=== PATIENT | male | born 1945 | race Caucasian/White ===

== ENCOUNTER 2024-05-28 11:01 | Observation (INO) ==
[2024-05-28 11:22] VITALS: BMI 28.8
--- NOTE | 2024-05-28 11:34 | EKG ---
Test Reason : preop Blood Pressure : */* mmHG Vent. Rate : 80 BPM Atrial Rate : 80 BPM P-R Int : 224 ms QRS Dur : 106 ms QT Int : 370 ms P-R-T Axes : 57 -6 29 degrees QTc Int : 426 ms Sinus rhythm with 1st degree AV block Otherwise normal ECG No previous ECGs available Confirmed by Malik Christensen MD ([id number]) on 05/28/2024 2:23:41 PM Referred By: Confirmed By: Malik Christensen MD
[2024-05-28 11:43] LABS: ALANINE AMINOTRANSFERASE 19 Units/L (12-78); ALBUMIN 3.8 g/dL (3.4-5.0); ALKALINE PHOSPHATASE 93 Units/L (46-116); ASPARTATE AMINO TRANSFERASE 15 Units/L (15-37); BLOOD UREA NITROGEN 18 mg/dL (7-18); CARBON DIOXIDE 28.4 mmol/L (21-32); CHLORIDE 104 mmol/L (98-107); COR NA(FOR HYPERGLY) 142 mmol/L (136-145); CREATINE KINASE 166 Units/L (39-308); CREATININE 1.31 mg/dL (0.70-1.30); GLUCOSE 175 mg/dL (65-99); MAGNESIUM 1.7 mg/dL (2.0-2.9); POTASSIUM 3.9 mmol/L (3.5-5.1); SODIUM 140 mmol/L (136-145); TOTAL PROTEIN 7.2 g/dL (6.4-8.2); eGFR NON BLACK RACES 56 (>60)
[2024-05-28 11:51] LABS: BASOPHILS # (AUTO) 0.1 X10^3/uL (0.0-0.1); EOSINOPHILS # (AUTO) 0.1 x10^3/uL (0.0-0.2); EOSINOPHILS % (AUTO) 1.9 % (0.9-2.9); HEMATOCRIT 39.5 % (42.0-54.0); HEMOGLOBIN 13.8 g/dL (13.5-18.0); LYMPHOCYTES # (AUTO) 1.6 X10^3/uL (1.3-2.9); LYMPHOCYTES % (AUTO) 22.6 % (21.0-51.0); MEAN CORPUSCULAR HEMOGLOBIN 30.3 pg (27.0-34.0); MEAN CORPUSCULAR VOLUME 86.7 fL (80.0-100.0); MEAN PLATELET VOLUME 9.7 fL (7.4-11.0); MONOCYTES # (AUTO) 0.4 x10^3/uL (0.3-0.8); MONOCYTES % (AUTO) 6.1 % (0.0-13.0); NEUTROPHILS # (AUTO) 4.6 x10^3/uL (2.2-4.8); NEUTROPHILS % (AUTO) 67.4 % (42.0-75.0); PLATELET COUNT 255 X10^3/uL (150.0-450.0); RED BLOOD COUNT 4.56 X10^6/uL (4.7-6.0); RED CELL DISTRIBUTION WIDTH 13.3 % (11.6-16.5); WHITE BLOOD COUNT 6.9 X10^3/uL (3.6-10.0)
[2024-05-28 11:56] LABS: INR 1.11 (0.8-1.3)
[2024-05-28] MEDS: MAGNESIUM SULFATE 1 GRAM/100 mL PREMIX 1 G/100 ML BAG IV ONE (12:21)
--- NOTE | 2024-05-28 12:29 | RAD ---
EXAM:AP chestHISTORY:SOBCOMPARISON:None .br.br.br congestion, edema, pneumonia or pleural effusion.IMPRESSION:No acute chest abnormality identified.THIS IS AN ELECTRONICALLY VERIFIED FINAL REPORT05/28/2024 12:20 PM - Electronically signed by Malcolm New MD
[2024-05-28] MEDS ORDERED: OMNIPAQUE 350 mg/mL 100 mL BTL 100 ML ONE (12:50)
[2024-05-28] MEDS ORDERED: OMNIPAQUE 350 mg/mL 50 mL BTL 50 ML ONE (12:50)
--- NOTE | 2024-05-28 14:07 | CT ---
EXAMINATION: CTA, CHEST HISTORY: CHEST PAIN, UPPER BACK PAIN ; 20G RT AC75 ML OMNI [id number] 15.03 . COMPARISON: None. TECHNIQUE: Routine axial imaging of the chest was performed. CT angiography of the pulmonary arteries was perfor med with maximum intensity projection images and volume rendered images on a workstation.. The above CT scan was done with automated exposure control and the mA and kV was adjusted to obtain quality im ages according to patient size. FINDINGS: Lungs: There is bronchiectasis centrally. Scattered patchy areas of atelectasis. No acute infiltra nav, interstitial changes, ground-glass opacities or suspicious pulmonary nodules Central Airways: No obstructing endobronchial lesions Pleura: No pleural effusion or pneumothorax Thoracic Aorta: Ectasia. Atherosclerotic calcification. No dissection. Main Pulmonary Trunk: Normal diameter. No CT angiography evidence for acute pulmonary embolus. Lymph Nodes: No pathologic hilar, axillary or mediastinal adenopathy Heart/Pericardium: Normal heart size. No significant pericardial effusion. Coronary artery calcifi cation in the LAD and circumflex Liver: No acute findings. GB/Biliary: No gallstones or dilated ducts Spleen: Normal size and density Pancreas: No acute findings as visualized Adrenal Glands: No mass Kidneys no hydronephrosis. Abdominal Aorta: Tapers normally Retroperitoneum: No pathologically enlarged lymph nodes Bowel/Peritoneal Cavity: No acute findings as visualized Osseous Structures: Thin flowing syndesmophytes in the thoracic spine with squaring of vertebral bod ies can be seen with ankylosing spondylitis. ACDF. No acute findings or bony lesions. Other: None IMPRESSION: No acute findings in the chest. No CT angiography evidence for acute pulmonary embolus or aortic dissection. The above CT scan was done with automated exposure control and the mA and kV was adjusted to obtain q uality images according to patient size THIS IS AN ELECTRONICALLY VERIFIED FINAL REPORT 05/28/2024 2:04 PM - Electronically signed by Michele Marquez MD
[2024-05-28] MEDS: APRESOLINE INJ 20 MG VIAL IVP ONE (14:37)
--- NOTE | 2024-05-28 16:10 | DR.HTN ---
HPI Time Seen Time Seen by Provider: 05/28/24 11:16 Primary Care Physician Primary Care Physician: [facility] in [place] Complaints Chief Complaint Doctors Comments: 78 yo M, hx of DM, HTN, hyperlipidemia, GERD, no hx of heart disease. Remote hx of bladder CA. Pt c/o L-sided chest pain intermitt the past couple days, persistent and more severe today. States he has been having dyspnea with exertion increasing in severity over the past couple days. States pain is L-sided, radiating into L arm and L upper back. Denies other complaints. Chief Complaint:: Patient states that for the past couple of weeks he has been having off and on chest pain on the lower left region of his chest. He states that the pain comes and goes, and only really hurts for a second. He also states that during this time he has been having left shoulder pain that goes to the middle of his upper back. He also states that he has been short of breath for the past year on excertion. He states that all of these issues have gotten worse in the past 2 or 3 days. He currently denies having any pain at this time. COVID-19 Coronavirus risk:travel/contact w/high risk person: No Has patient experienced Coronavirus symptoms: No Source History Provided: Patient Mode of Arrival Mode of Arrival: Ambulatory Timing Onset of Chief Complaint: 05/25/24 Context Treatment of HTN Prior to Arrival: Taking meds as prescribed Associated Signs and Symptoms HTN Associated Signs and Symptoms: Dizziness, Weakness and Shortness of Breath PMH PMH Past Medical History: Yes Past Medical History: Diabetes, Dyslipidemia, GERD, Hypertension and Cancer Past Medical History Comment: Bladder cancer Past Surgical History: Yes Surgical History: Ortho Surgery and Other Past Surgical History Comment: Removal of bladder cancer, Neck Family History History of Family Medical Conditions: Yes Family Medical History: Diabetes Mellitus, Cancer, [place], Coronary Artery Disease and Hypertension Social History Does patient currently use any type of tobacco product: No Have you used tobacco products in the last 12 months: No Type of Tobacco Use: None Does any household member use tobacco: No Alcohol Use: None Do you use any recreational Drugs:: No Lives With: Family Lives Where: Home Travel Risk Coronavirus risk:travel/contact w/high risk person: No Has patient experienced Coronavirus symptoms: No Infectious screening In the last 2 months have you had wt loss of >10#?: NO Have you had fever, night sweats or hemotysis?: No Have you traveled outside the country in the last 6 months?: No Isolation: Standard ROS Review of Systems Respiratoy: Short of Breath Cardiovascular: Chest Pain All Other Systems: Reviewed and Negative PE Vital Signs Vitals: Vital Signs Temperature 98 F Pulse Rate 69 Pulse Rate 62 Pulse Rate 68 Pulse Rate 59 Pulse Rate 64 Pulse Rate 61 Pulse Rate 69 Pulse Rate 60 Pulse Rate 64 Pulse Rate 72 Pulse Rate 64 Pulse Rate 70 Pulse Rate 80 Pulse Rate 76 Pulse Rate 80 Pulse Rate 86 Respiratory Rate 19 Respiratory Rate 30 Respiratory Rate 31 Respiratory Rate 21 Respiratory Rate 25 Respiratory Rate 18 Respiratory Rate 24 Blood Pressure 174/86 Blood Pressure 176/82 Blood Pressure 158/73 Blood Pressure 166/79 Blood Pressure 157/74 Blood Pressure 166/81 Blood Pressure 162/82 Blood Pressure 175/87 Blood Pressure 175/87 O2 Sat by Pulse Oximetry 98 O2 Sat by Pulse Oximetry 98 O2 Sat by Pulse Oximetry 100 O2 Sat by Pulse Oximetry 98 O2 Sat by Pulse Oximetry 99 O2 Sat by Pulse Oximetry 98 O2 Sat by Pulse Oximetry 99 O2 Sat by Pulse Oximetry 98 O2 Sat by Pulse Oximetry 98 O2 Sat by Pulse Oximetry 98 O2 Sat by Pulse Oximetry 98 O2 Sat by Pulse Oximetry 97 O2 Sat by Pulse Oximetry 98 O2 Sat by Pulse Oximetry 98 General Limitations: No Limitations General Appearance: Alert and In No Apparent Distress Head Head Exam: Normal Inspection Eyes Eye exam: Normal Appearance ENT ENT Exam: Normal Exam Neck Neck Exam: Normal Inspection Chest Chest Inspection: Normal Inspection Respiratory Respiratory Exam: Normal Lung Sounds Bilat Respiratory Exam: Bilateral: Clear to Auscultation Cardiovascular Cardiovascular Exam: Regular Rate and Normal Rhythm Abdominal Exam Abdominal Exam: Normal Inspection, Normal Bowel Sounds and Soft Extremities Extremities Exam: Normal Inspection Back Back Exam: Normal Inspection Neurologic Neurological Exam: Alert and Oriented X3 Psychiatric Psychiatric Exam: Normal Affect and Normal Mood Skin Skin Exam: Warm, Dry, Intact and Normal Color ROR Labs Reviewed Laboratory Results Reviewed?: Yes 05/28/24 11:15 05/28/24 11:15 Laboratory: WBC 6.9 X10^3/uL (3.6-10.0) 05/28/24 11:15 RBC 4.56 X10^6/uL (4.7-6.0) L 05/28/24 11:15 Hgb 13.8 g/dL (13.5-18.0) 05/28/24 11:15 Hct 39.5 % (42.0-54.0) L 05/28/24 11:15 MCV 86.7 fL (80.0-100.0) 05/28/24 11:15 MCH 30.3 pg (27.0-34.0) 05/28/24 11:15 MCHC 35.0 g/dL (33.0-35.0) 05/28/24 11:15 RDW 13.3 % (11.6-16.5) 05/28/24 11:15 Plt Count 255 X10^3/uL (150.0-450.0) 05/28/24 11:15 MPV 9.7 fL (7.4-11.0) 05/28/24 11:15 Neut % (Auto) 67.4 % (42.0-75.0) 05/28/24 11:15 Lymph % (Auto) 22.6 % (21.0-51.0) 05/28/24 11:15 [place] % (Auto) 6.1 % (0.0-13.0) 05/28/24 11:15 Eos % (Auto) 1.9 % (0.9-2.9) 05/28/24 11:15 Baso % (Auto) 2.0 % (0.2-1.0) H 05/28/24 11:15 Neut # (Auto) 4.6 x10^3/uL (2.2-4.8) 05/28/24 11:15 Lymph # (Auto) 1.6 X10^3/uL (1.3-2.9) 05/28/24 11:15 [place] # (Auto) 0.4 x10^3/uL (0.3-0.8) 05/28/24 11:15 Eos # (Auto) 0.1 x10^3/uL (0.0-0.2) 05/28/24 11:15 Baso # (Auto) 0.1 X10^3/uL (0.0-0.1) 05/28/24 11:15 Absolute Nucleated RBC 0.0 /100WBC 05/28/24 11:15 PT 14.0 SECONDS (11.8-14.3) 05/28/24 11:15 INR Target Range - 05/28/24 11:15 INR 1.11 (0.8-1.3) 05/28/24 11:15 APTT 26.3 SECONDS (22.9-36.5) 05/28/24 11:15 PTT Comment - 05/28/24 11:15 Sodium 140 mmol/L (136-145) 05/28/24 11:15 Corrected Sodium 142 mmol/L (136-145) 05/28/24 11:15 Potassium 3.9 mmol/L (3.5-5.1) 05/28/24 11:15 Chloride 104 mmol/L (98-107) 05/28/24 11:15 Carbon Dioxide 28.4 mmol/L (21-32) 05/28/24 11:15 BUN 18 mg/dL (7-18) 05/28/24 11:15 Creatinine 1.31 mg/dL (0.70-1.30) H 05/28/24 11:15 Est GFR (MDRD) Af Amer > 60 (>60) 05/28/24 11:15 Est GFR (MDRD) Non-Af 56 (>60) L 05/28/24 11:15 Glucose 175 mg/dL (65-99) H 05/28/24 11:15 Calcium 10.0 mg/dL (8.5-10.1) 05/28/24 11:15 Corrected Calcium TNP 05/28/24 11:15 Magnesium 1.7 mg/dL (2.0-2.9) L 05/28/24 11:15 Total Bilirubin 0.70 mg/dL (0.2-1.0) 05/28/24 11:15 AST 15 Units/L (15-37) 05/28/24 11:15 ALT 19 Units/L (12-78) 05/28/24 11:15 Alkaline Phosphatase 93 Units/L (46-116) 05/28/24 11:15 Creatine Kinase 166 Units/L (39-308) 05/28/24 11:15 Troponin I High Sens 7.2 ng/L (4.0-60.0) 05/28/24 11:15 B-Natriuretic Peptide 44.9 pg/mL (0-79) 05/28/24 11:15 Total Protein 7.2 g/dL (6.4-8.2) 05/28/24 11:15 Albumin 3.8 g/dL (3.4-5.0) 05/28/24 11:15 Globulin 3.4 g/dL (2.5-4.5) 05/28/24 11:15 Albumin/Globulin Ratio 1.1 Ratio (1.1-2.1) 05/28/24 11:15 Opioid Opioid Risk Tool Age (Brock box if 16-45): No History of Preadolescent Sexual Abuse: No Total: 0 Total Score Risk Category: Low Risk Copyright: Bal FARRIS predicting aberrant behaviors Discharge Plan Diagnosis Discharge Problem: Chest pain, Unstable angina Discharge Plan Patient Disposition: HOME, SELF-CARE Condition: Stable Prescriptions: No Action metformin 500 mg Tablet 500 mg PO DAILY simvastatin 10 mg Tablet 10 mg PO DAILY losartan 100 mg Tablet 100 mg PO DAILY Health Concerns: Post Hospitalization: new medications and changes needed to prevent readmission or further decline. Pt educated and given instructions on all concerns. Plan of Treatment: Continue with present treatment and follow up plan. Pt is to keep follow up appointment as instructed and take medications as ordered. Orders to Discharge Patient Discharge Orders: Transfer (Routine); Ordered 05/28/24 Ordered By: Sonny Gale Instructions Instructions: Acute Coronary Syndrome, Nonspecific Chest Pain Stand Alone Forms: Find Help Web Site, Post Hospital Follow Up Care ADDITIONAL NOTES Additional Notes Additional Notes: admit to Dr Walsh at 1605PM
--- NOTE | 2024-05-28 17:50 | EKG ---
Test Reason : chest pain Blood Pressure : */* mmHG Vent. Rate : 79 BPM Atrial Rate : 79 BPM P-R Int : 208 ms QRS Dur : 94 ms QT Int : 384 ms P-R-T Axes : 70 -1 38 degrees QTc Int : 440 ms Normal sinus rhythm Anterior infarct , age undetermined Abnormal ECG When compared with ECG of 28-MAY-2024 11:08, Anterior infarct is now present Confirmed by Malik Christensen MD ([id number]) on 05/29/2024 7:18:42 AM Referred By: Confirmed By: Malik Christensen MD
[2024-05-28] MEDS: NS 1,000 ML IV 1,000 ML IV SCH (18:02)
[2024-05-28] MEDS ORDERED: CONSULT PHARMACY - POTASSIUM & MAGNESIUM XX SCH (19:00)
[2024-05-28] MEDS: MAG-OX TAB PO SCH (20:25)
[2024-05-28] MEDS ORDERED: MAG-OX TAB ONE (22:12)
[2024-05-28] MEDS: TYLENOL 325 MG TAB PO PRN (22:51)
[2024-05-29 05:32] LABS: BASOPHILS # (AUTO) 0.1 X10^3/uL (0.0-0.1); BASOPHILS % (AUTO) 1.3 % (0.2-1.0); EOSINOPHILS # (AUTO) 0.2 x10^3/uL (0.0-0.2); EOSINOPHILS % (AUTO) 2.4 % (0.9-2.9); HEMATOCRIT 35.3 % (42.0-54.0); HEMOGLOBIN 12.4 g/dL (13.5-18.0); LYMPHOCYTES # (AUTO) 2.1 X10^3/uL (1.3-2.9); LYMPHOCYTES % (AUTO) 29.1 % (21.0-51.0); MEAN CORPUSCULAR HEMOGLOBIN 30.3 pg (27.0-34.0); MEAN CORPUSCULAR HGB CONC 35.2 g/dL (33.0-35.0); MEAN PLATELET VOLUME 9.3 fL (7.4-11.0); MONOCYTES # (AUTO) 0.5 x10^3/uL (0.3-0.8); MONOCYTES % (AUTO) 7.5 % (0.0-13.0); NEUTROPHILS # (AUTO) 4.3 x10^3/uL (2.2-4.8); NEUTROPHILS % (AUTO) 59.7 % (42.0-75.0); PLATELET COUNT 233 X10^3/uL (150.0-450.0); RED CELL DISTRIBUTION WIDTH 13.6 % (11.6-16.5); WHITE BLOOD COUNT 7.1 X10^3/uL (3.6-10.0)
[2024-05-29 05:54] LABS: ALANINE AMINOTRANSFERASE 19 Units/L (12-78); ALBUMIN 3.1 g/dL (3.4-5.0); ALKALINE PHOSPHATASE 83 Units/L (46-116); ASPARTATE AMINO TRANSFERASE 16 Units/L (15-37); BLOOD UREA NITROGEN 20 mg/dL (7-18); CALCIUM 8.7 mg/dL (8.5-10.1); CARBON DIOXIDE 26.8 mmol/L (21-32); CHLORIDE 106 mmol/L (98-107); CHOL/HDL RATIO 2.9 (0.0-5.0); CHOLESTEROL 115 mg/dL (0-200); COR CA(FOR HYPOALB) 9.4 mg/dL (8.5-10.1); COR NA(FOR HYPERGLY) 141 mmol/L (136-145); GLUCOSE 145 mg/dL (65-99); HDL CHOLESTEROL 40 mg/dL (40-60); POTASSIUM 3.9 mmol/L (3.5-5.1); SODIUM 140 mmol/L (136-145); TOTAL PROTEIN 6.1 g/dL (6.4-8.2); TRIGLYCERIDES 70 mg/dL (0-150); eGFR NON BLACK RACES 56 (>60)
[2024-05-29 06:32] LABS: INR 1.21 (0.8-1.3)
--- NOTE | 2024-05-29 07:51 | RAD ---
EXAMINATION:CHEST, 1 VIEWHISTORY:CHEST PAIN ; DM, GERD, HTN, BLADDER CA SX: ORTHO, REMOVAL OF BLADDER CANCER .COMPARISON STUDY:Chest x-ray 05/28/2024TECHNIQUE:Single portable AP view chestFINDINGS:Lungs are expanded. Patchy infiltrate left pulmonary base. Mild cardiac silhouette enlargement. Normal pulmonary vascular pattern. Bones are intact. Partially imaged fusion hardware cervical spine.IMPRESSION:Cardiac silhouette enlargement. Patchy infiltrate left pulmonary base.THIS IS AN ELECTRONICALLY VERIFIED FINAL REPORT05/29/2024 7:48 AM - Electronically signed by Marisa Omalley MD
[2024-05-29] MEDS: ZOCOR TAB 10 MG PO SCH (08:37)
[2024-05-29] MEDS: COZAAR PO SCH (08:37)
[2024-05-29] MEDS ORDERED: GLUCOPHAGE PO SCH (09:00)
--- NOTE | 2024-05-29 10:11 | DR.H&P ---
H&P History & Physical for Day of: H&P Date: 05/29/24 Chief Complaint Chief Complaint: chest pain, dizziness History of Present Illness History of Present Illness: Mr Torres is a 78y/o male with a PMH of HTN, HLD, DM presented with chest pain, dizziness and elevated BP. He states he has been having these symptoms for the past 3-4 days. He does have chronic dizziness but recently got worse. He also noticed his BP staying elevated recently in the 180s systolic. He reports chest pain is intermittent similar to a burning sensation. He has dyspnea on exertion for a while. He had carotid US done 3 months ago which did not show significant stenosis. He has not had any cardiac work up in years. Denies hx of CAD or CHF. ER work up showed BP 174/86, Trop (-) BNP (-) CXR and CT-chest negative. EKG did not show any acute changes. He was given IV hydralazine. He was admitted for further evaluation. His BP improved overnight. His trop x 4 have been negative. He reports feeling better. CXR today showed possible left sided infiltrate. He does report more cough lately and sinus pressure. Labs/imaging reviewed: -WBC 7.1 Hgb 12.4 K 3.9 Cr 1.30 Trop x 4 (-) BNP -) -CXR 05/29/24: left sided infiltrate Plan: Continue telemetry, consult Cardiology. Echo pending. Replace electrolytes as per protocol. Resume home medications. Add Azithromycin and bronchodilators. Continue hydration. Monitor AM labs/imaging. Past Medical History Past Medical History: Diabetes, Dyslipidemia, GERD, Hypertension and Cancer Past Surgical History Surgical History: Ortho Surgery and Other Family History Family Medical History: Diabetes Mellitus and Cancer Social History Does patient currently use any type of tobacco product: No Have you used tobacco products in the last 12 months: No Type of Tobacco Use: None Does any household member use tobacco: No Alcohol Use: None Drug Use: None Medications Home Medications: Home Medications Medication Instructions Recorded Confirmed Type losartan 100 mg tablet 100 mg PO DAILY 05/28/24 05/28/24 History metformin 500 mg tablet 500 mg PO DAILY 05/28/24 05/28/24 History simvastatin 10 mg tablet 10 mg PO DAILY 05/28/24 05/28/24 History Allergies Allergies Allergy/AdvReac Type Severity Reaction Status Date / Time No Known Allergies Allergy Verified 05/28/24 11:03 Labs 05/29/24 05:15 05/29/24 05:15 Labs: Laboratory WBC 7.1 X10^3/uL (3.6-10.0) 05/29/24 05:15 RBC 4.10 X10^6/uL (4.7-6.0) L 05/29/24 05:15 Hgb 12.4 g/dL (13.5-18.0) L 05/29/24 05:15 Hct 35.3 % (42.0-54.0) L 05/29/24 05:15 MCV 86.0 fL (80.0-100.0) 05/29/24 05:15 MCH 30.3 pg (27.0-34.0) 05/29/24 05:15 MCHC 35.2 g/dL (33.0-35.0) H 05/29/24 05:15 RDW 13.6 % (11.6-16.5) 05/29/24 05:15 Plt Count 233 X10^3/uL (150.0-450.0) 05/29/24 05:15 MPV 9.3 fL (7.4-11.0) 05/29/24 05:15 Neut % (Auto) 59.7 % (42.0-75.0) 05/29/24 05:15 Lymph % (Auto) 29.1 % (21.0-51.0) 05/29/24 05:15 [place] % (Auto) 7.5 % (0.0-13.0) 05/29/24 05:15 Eos % (Auto) 2.4 % (0.9-2.9) 05/29/24 05:15 Baso % (Auto) 1.3 % (0.2-1.0) H 05/29/24 05:15 Neut # (Auto) 4.3 x10^3/uL (2.2-4.8) 05/29/24 05:15 Lymph # (Auto) 2.1 X10^3/uL (1.3-2.9) 05/29/24 05:15 [place] # (Auto) 0.5 x10^3/uL (0.3-0.8) 05/29/24 05:15 Eos # (Auto) 0.2 x10^3/uL (0.0-0.2) 05/29/24 05:15 Baso # (Auto) 0.1 X10^3/uL (0.0-0.1) 05/29/24 05:15 Absolute Nucleated RBC 0.0 /100WBC 05/29/24 05:15 PT 15.1 SECONDS (11.8-14.3) 05/29/24 05:15 INR Target Range - 05/29/24 05:15 INR 1.21 (0.8-1.3) 05/29/24 05:15 APTT 27.1 SECONDS (22.9-36.5) 05/29/24 05:15 PTT Comment - 05/29/24 05:15 Sodium 140 mmol/L (136-145) 05/29/24 05:15 Corrected Sodium 141 mmol/L (136-145) 05/29/24 05:15 Potassium 3.9 mmol/L (3.5-5.1) 05/29/24 05:15 Chloride 106 mmol/L (98-107) 05/29/24 05:15 Carbon Dioxide 26.8 mmol/L (21-32) 05/29/24 05:15 BUN 20 mg/dL (7-18) H 05/29/24 05:15 Creatinine 1.30 mg/dL (0.70-1.30) 05/29/24 05:15 Est GFR (MDRD) Af Amer > 60 (>60) 05/29/24 05:15 Est GFR (MDRD) Non-Af 56 (>60) L 05/29/24 05:15 Glucose 145 mg/dL (65-99) H 05/29/24 05:15 POC Glucose (mg/dL) 137 mg/dL (65-99) H 05/29/24 05:27 Calcium 8.7 mg/dL (8.5-10.1) 05/29/24 05:15 Corrected Calcium 9.4 mg/dL (8.5-10.1) 05/29/24 05:15 Magnesium 2.0 mg/dL (2.0-2.9) 05/29/24 05:15 Total Bilirubin 0.50 mg/dL (0.2-1.0) 05/29/24 05:15 AST 16 Units/L (15-37) 05/29/24 05:15 ALT 19 Units/L (12-78) 05/29/24 05:15 Alkaline Phosphatase 83 Units/L (46-116) 05/29/24 05:15 Creatine Kinase 276 Units/L (39-308) 05/28/24 17:46 Troponin I High Sens 8.9 ng/L (4.0-60.0) 05/29/24 05:15 B-Natriuretic Peptide 44.9 pg/mL (0-79) 05/28/24 11:15 Total Protein 6.1 g/dL (6.4-8.2) L 05/29/24 05:15 Albumin 3.1 g/dL (3.4-5.0) L 05/29/24 05:15 Globulin 3.0 g/dL (2.5-4.5) 05/29/24 05:15 Albumin/Globulin Ratio 1.0 Ratio (1.1-2.1) L 05/29/24 05:15 Triglycerides 70 mg/dL (0-150) 05/29/24 05:15 Cholesterol 115 mg/dL (0-200) 05/29/24 05:15 LDL Cholesterol, Calc 61 mg/dL (0-100) 05/29/24 05:15 HDL Cholesterol 40 mg/dL (40-60) 05/29/24 05:15 Cholesterol/HDL Ratio 2.9 (0.0-5.0) 05/29/24 05:15 Review of Systems Constitutional: No Symptoms Reported Eyes: No Symptoms Reported ENT: No Symptoms Reported Respiratory: SOB with Excertion Cardiovascular: Chest Pain and Light Headedness Gastrointestinal: No Symptoms Reported Genitourinary: No Symptoms Reported Musculoskeletal: No Symptoms Reported Skin: No Symptoms Reported Neurological: No Symptoms Reported Physical Exam Vital Signs: Vital Signs Temperature 98.1 F Temperature 98.1 F Pulse Rate [Right Radial] 68 Pulse Rate [Right Radial] 68 Respiratory Rate 20 Respiratory Rate 20 Blood Pressure [Left Arm] 115/59 Blood Pressure [Left Arm] 115/59 O2 Sat by Pulse Oximetry 96 O2 Sat by Pulse Oximetry 96 Oriented: Normal Eyes: Normal Throat: Normal Respiratory: Diminished Throughout Cardiovascular: Normal Auscultation: Bowel Sounds: Normal Palpation: Normal Tenderness: Normal Skin: Normal Musculoskeletal: Normal Psychiatric: Normal Mood Description: Calm Affect: Normal Speech Pattern: Clear and Appropriate Assessment/Plan (1) Chest pain: Qualifiers: Chest pain type: unspecified Qualified Code(s): R07.9 - Chest pain, unspecified Status: Acute (2) Dyspnea on exertion: Status: Acute (3) HTN (hypertension): Qualifiers: Hypertension type: primary hypertension Qualified Code(s): I10 - Essential (primary) hypertension Status: Chronic (4) Type 2 diabetes mellitus: Qualifiers: Diabetes mellitus complication status: without complication Diabetes mellitus emt intermediate insulin use: without jail use Qualified Code(s): E11.9 - Type 2 diabetes mellitus without complications Status: Chronic (5) HLD (hyperlipidemia): Qualifiers: Hyperlipidemia type: mixed hyperlipidemia Qualified Code(s): E78.2 - Mixed hyperlipidemia Status: Chronic Review H&P Reviewed: Yes Patient was examined?: Yes
[2024-05-29] MEDS: LOVENOX INJ 40 MG SYR SC SCH (10:31)
[2024-05-29] MEDS: ZITHROMAX INJ 500 MG VIAL 500 MG in NS 250 ML IV 250 ML IV SCH (10:32)
[2024-05-29] MEDS: DUONEB 0.5 MG/3 MG (3 mL) NEB SCH (12:23)
[2024-05-29] MEDS: NovoLIN R (or HumuLIN R) SUBCUT PRN (12:31)
[2024-05-29 13:58] VITALS: RESP 19
--- NOTE | 2024-05-29 14:21 | DR.CONSULT ---
CONSULT Consultation for Day of: Date: 05/29/24 Chief Complaint Chief Complaint: high bp/cp/dizzy Allergies Allergies Allergy/AdvReac Type Severity Reaction Status Date / Time No Known Allergies Allergy Verified 05/28/24 11:03 History of Present Illness History of Present Illness: 78 yo , no cad- has htn/hlp/dm- came to er because high bp/dizzy- and twinges of cp lasting seconds-ekg: nsr first degree avb- trops x 4 negative- good lv on echo, cta: nope/dissection- cxr suggest pna- feels ok now- few years back did stress test but only lasted 30 sec/unstable at times Past Medical History Past Medical History: Diabetes, Dyslipidemia, GERD, Hypertension and Cancer Past Surgical History Surgical History: Ortho Surgery and Other Family History Family Medical History: Diabetes Mellitus and Cancer Social History Does patient currently use any type of tobacco product: No Have you used tobacco products in the last 12 months: No Type of Tobacco Use: None Does any household member use tobacco: No Alcohol Use: None Drug Use: None Medications Home Medications: No Known Allergies Allergy (Verified 05/28/24 11:03) CONTINUE taking the following medications losartan 100 mg tablet 100 mg PO DAILY 05/28/24 [History] metformin 500 mg tablet 500 mg PO DAILY 05/28/24 [History] simvastatin 10 mg tablet 10 mg PO DAILY 05/28/24 [History] Physical Exam Vital Signs: Vital Signs Temperature 97.9 F Temperature 97.7 F Pulse Rate [Right Radial] 69 Pulse Rate [Right Radial] 75 Respiratory Rate 19 Respiratory Rate 18 Blood Pressure [Left Arm] 143/63 Blood Pressure [Left Arm] 121/61 O2 Sat by Pulse Oximetry 99 O2 Sat by Pulse Oximetry 97 alert ox3 nad no bruits soft sarah rrr no edema clear lungs other labs to note: wbc 12k hct 35 k 3.9 Plan (1) Chest pain: Status: Acute Qualifiers: Chest pain type: unspecified Qualified Code(s): R07.9 - Chest pain, unspecified Narrative Support Text: no mi/good lv on echo Plan: asa/statin/arb/low dose bb- will consider ischemic eval next week after pna treated (2) Dyspnea on exertion: Status: Acute (3) HTN (hypertension): Status: Chronic Qualifiers: Hypertension type: primary hypertension Qualified Code(s): I10 - Essential (primary) hypertension (4) Type 2 diabetes mellitus: Status: Chronic Qualifiers: Diabetes mellitus long term care administrator insulin use: without long-term use Diabetes mellitus complication status: without complication Qualified Code(s): E11.9 - Type 2 diabetes mellitus without complications (5) HLD (hyperlipidemia): Status: Chronic Qualifiers: Hyperlipidemia type: mixed hyperlipidemia Qualified Code(s): E78.2 - Mixed hyperlipidemia (6) Pneumonia: Status: Acute
[2024-05-29 16:44] VITALS: BP 159/70; PULSE 77; TEMP 97.8; O2SAT 97
[2024-05-29] MEDS: TOPROL XL PO SCH (16:45)
[2024-05-29] MEDS ORDERED: SNACK - Diabetic Appropriate PO SCH (20:00)
[2024-05-30] MEDS ORDERED: ASPIRIN 81 MG CHEWTAB PO SCH (09:00)
== END 2024-05-29 16:15 | disposition home or self-care (01) ==
LOC: SUPCPDRO → ER 11:01 → MED/SURG 11:01 → U 11:01 → MED/SURG 17:23
PROVIDERS: ADMIT Internal Medicine; ATTEND Internal Medicine